=== PATIENT | male | born 1960 | race Caucasian/White ===

== ENCOUNTER 2023-02-07 20:32 | Emergency (ER) | payer MEDICAID, OTHER ==
[~2023-02-07] VITALS: Ht 175.3 cm; Wt 81.6 kg
[2023-02-07] MEDS ORDERED: HYDROCODONE/APAP 5/325MG TABLET ONE (21:20)
[2023-02-07] MEDS ORDERED: HYDROCODONE/APAP 5/325MG TABLET PO ONE (21:30)
--- NOTE | 2023-02-07 21:30 | NUR ---
Patient AOx4, be to express his concerns. PAtietn states he has pain on left side do to today "issue" Discussed plan of care and the need for assessment, pt verbalized agreement. All safety precautions taken.
[2023-02-07] MEDS ORDERED: IBUP-1957 PO (22:12)
--- NOTE | 2023-02-07 22:29 | NUR ---
Per MD pt meets d/c criteria. Reviewed discharge instructions with pt, and prescrition. 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
[2023-02-07 22:30] VITALS: BP 118/68
== END 2023-02-07 22:30 | disposition home or self-care (01) ==
LOC: ER 20:48
DX: S13.8XXA Sprain of joints and ligaments of other parts of neck, initial encounter (principal); S43.492A Other sprain of left shoulder joint, initial encounter; S00.81XA Abrasion of other part of head, initial encounter; E11.9 Type 2 diabetes mellitus without complications; Z60.2 Problems related to living alone; Z79.899 Other long term (current) drug therapy; Y08.89XA Assault by other specified means, initial encounter; Y93.89 Activity, other specified; Y92.89 Other specified places as the place of occurrence of the external cause; Y99.8 Other external cause status
CPT/HCPCS: 70450-TC; 72125-TC; 73030-TC